=== PATIENT | female | born 1940 | race Caucasian/White ===

== ENCOUNTER 2019-01-22 16:37 | Observation (INO) ==
[2019-01-22] MEDS ORDERED: Isovue-370 500 ML BOTTLE IVP ONE (16:53)
[2019-01-22] MEDS ORDERED: Aspirin 325 MG TABLET PO ONE (16:54)
[2019-01-22 17:35] LABS: Basophils % 0.5 %; Eosinophils # 0.1 K/mcL (0.0-0.6); Eosinophils % 1.9 %; Hematocrit 36.6 % (35.3-44.9); Hemoglobin 12.3 g/dL (11.5-15.4); Immature Granulocytes % 0.5 % (0-4); Lymphocytes # 1.2 K/mcL (0.6-4.6); Lymphocytes % 21.4 %; Mean Corpuscular HGB Conc 33.6 g/dL (31.6-35.5); Mean Corpuscular Hemoglobin 32.8 pg (28.0-33.3); Mean Corpuscular Volume 97.6 fL (83.0-100.0); Mean Platelet Volume 10.5 fL (9.4-12.4); Monocytes # 0.7 K/mcL (0.0-1.3); Monocytes % 12.5 %; Neutrophils # 3.6 K/mcL (1.6-8.9); Platelet Count 149 K/mcL (140-400); Red Blood Count 3.75 M/mcL (3.82-4.97); Red Cell Distribution Width 12.4 % (11.5-14.5); Segmented Neutrophils % 63.2 %; White Blood Count 5.8 K/mcL (4.3-11.1)
[2019-01-22 17:54] LABS: Alanine Aminotransferase 10 Units/L (7-52); Albumin 4.2 g/dL (3.5-5.7); Albumin/Globulin Ratio 1.9 (1.1-2.2); Alkaline Phosphatase 88 Units/L (34-104); Aspartate Amino Transferase 15 Units/L (13-39); BUN/Creatinine Ratio 16 (6-26); Bilirubin,Total 0.4 mg/dL (0.3-1.0); Blood Urea Nitrogen 10 mg/dL (8-23); Calcium 9.1 mg/dL (8.6-10.3); Carbon Dioxide 30 mEq/L (23-29); Chloride 104 mEq/L (98-107); Globulin 2.2 g/dL (2.4-3.5); Glucose 118 mg/dL (70-105); Osmolality,Calculated 288 (280-300); Potassium 3.7 mEq/L (3.5-5.1); Sodium 139 mEq/L (136-145); Total Protein 6.4 g/dL (6.4-8.9); eGFR For African Americans > 60 (> 60); eGFR For Non-African Americans > 60 (> 60)
[2019-01-22 17:58] LABS: Bilirubin,Urine Negative (Negative); Blood,Urine Small (Negative); Clarity,Urine Clear (Clear); Color,Urine Yellow (Yellow); Glucose,Urine (UA) Normal (Normal); Ketones,Urine Negative (Negative); Leukocyte Esterase,Urine Small (Negative); Nitrite,Urine Negative (Negative); Protein,Urine Negative (Neg-Trace); Specific Gravity,Urine 1.012 (1.010-1.025); Urobilinogen,Urine Normal (Normal)
[2019-01-22 17:59] LABS: Bacteria,Urine None Seen per hpf (None-Few); Hyaline Casts,Urine None Seen per lpf (None-Few); Squamous Epithelial Cell,Urine Many per lpf (None-Few); WBC,Urine 0-3 per hpf (0-3)
[2019-01-22] MEDS ORDERED: 0.9 % Sodium Chloride 1,000 ML IVC ONE (18:26)
[2019-01-22] MEDS: Nitroglycerin 0.4 MG TAB.SUBL SL SCH ×2 (19:21→22:07)
[2019-01-22] MEDS ORDERED: Naloxone 0.4 MG/ML INJ IVP PRN (22:50)
[2019-01-22] MEDS ORDERED: Nitroglycerin 0.4 MG TAB.SUBL SL PRN (22:50)
[2019-01-22] MEDS ORDERED: Ondansetron 4 MG/2 ML VIAL IVP PRN (22:50)
[2019-01-23] MEDS: Morphine Sulfate 2 MG/ML SYRINGE IVP PRN ×2 (03:43→08:27)
[2019-01-23 05:25] LABS: Basophils % 0.6 %; Eosinophils # 0.1 K/mcL (0.0-0.6); Eosinophils % 2.9 %; Hematocrit 36.8 % (35.3-44.9); Immature Granulocytes % 0.2 % (0-4); Lymphocytes # 0.9 K/mcL (0.6-4.6); Lymphocytes % 17.7 %; Mean Corpuscular HGB Conc 32.6 g/dL (31.6-35.5); Mean Corpuscular Volume 98.1 fL (83.0-100.0); Mean Platelet Volume 10.5 fL (9.4-12.4); Monocytes # 0.6 K/mcL (0.0-1.3); Monocytes % 12.9 %; Neutrophils # 3.2 K/mcL (1.6-8.9); Platelet Count 147 K/mcL (140-400); Red Blood Count 3.75 M/mcL (3.82-4.97); Red Cell Distribution Width 12.6 % (11.5-14.5); Segmented Neutrophils % 65.7 %; White Blood Count 4.8 K/mcL (4.3-11.1)
[2019-01-23 05:32] LABS: INR 1.1; Prothrombin Time 12.5 Seconds (9.4-12.1)
[2019-01-23 05:35] LABS: Activated Partial Thrombo Time 33.5 Seconds (26.0-36.0)
[2019-01-23 05:46] LABS: Alanine Aminotransferase 9 Units/L (7-52); Albumin 3.8 g/dL (3.5-5.7); Albumin/Globulin Ratio 1.9 (1.1-2.2); Alkaline Phosphatase 80 Units/L (34-104); Aspartate Amino Transferase 13 Units/L (13-39); BUN/Creatinine Ratio 13 (6-26); Bilirubin,Total 0.5 mg/dL (0.3-1.0); Blood Urea Nitrogen 7 mg/dL (8-23); Calcium 8.7 mg/dL (8.6-10.3); Carbon Dioxide 29 mEq/L (23-29); Chloride 107 mEq/L (98-107); Chol/HDL Ratio 2.6 (0-4.9); Cholesterol 121 mg/dL (< 200); Glucose 115 mg/dL (70-105); HDL Cholesterol 47 mg/dL (40-59); LDL Cholesterol,Calculated 51 mg/dL (0-99); Osmolality,Calculated 291 (280-300); Potassium 3.8 mEq/L (3.5-5.1); Sodium 141 mEq/L (136-145); Total Protein 5.8 g/dL (6.4-8.9); Triglycerides 114 mg/dL (< 150); eGFR For African Americans > 60 (> 60); eGFR For Non-African Americans > 60 (> 60)
[2019-01-23] MEDS: *HR* Heparin 5,000 UNIT/ML VIAL SQ SCH ×2 (06:13→15:41)
[2019-01-23] MEDS: Cyanocobalamin (B-12) 1,000 MCG TABLET PO SCH (08:12)
[2019-01-23] MEDS: Aspirin Enteric Coated 81 MG Tablet PO SCH (08:58)
[2019-01-23] MEDS ORDERED: Aspirin 325 MG TABLET PO SCH (09:00)
[2019-01-23 11:44] LABS: Troponin I < 0.03 ng/mL (< 0.04)
[2019-01-23] MEDS: Acetaminophen 325 MG TABLET PO PRN (15:41)
[2019-01-23] MEDS ORDERED: Morphine Sulfate 2 MG/ML SYRINGE IVP PRN (16:01)
[2019-01-23 16:32] LABS: C-Reactive Protein 17 mg/L (Less than 10); Creatine Kinase 26 Units/L (30-223)
[2019-01-24 03:00] LABS: Basophils % 0.6 %; Eosinophils # 0.2 K/mcL (0.0-0.6); Eosinophils % 3.1 %; Hematocrit 35.7 % (35.3-44.9); Hemoglobin 11.9 g/dL (11.5-15.4); Immature Granulocytes % 0.4 % (0-4); Lymphocytes # 0.9 K/mcL (0.6-4.6); Lymphocytes % 18.9 %; Mean Corpuscular HGB Conc 33.3 g/dL (31.6-35.5); Mean Corpuscular Hemoglobin 32.2 pg (28.0-33.3); Mean Corpuscular Volume 96.7 fL (83.0-100.0); Mean Platelet Volume 10.3 fL (9.4-12.4); Monocytes # 0.7 K/mcL (0.0-1.3); Monocytes % 14.5 %; Neutrophils # 3.1 K/mcL (1.6-8.9); Platelet Count 145 K/mcL (140-400); Red Blood Count 3.69 M/mcL (3.82-4.97); Red Cell Distribution Width 12.4 % (11.5-14.5); Segmented Neutrophils % 62.5 %; White Blood Count 4.9 K/mcL (4.3-11.1)
[2019-01-24 03:13] LABS: Complement C3 145 mg/dL (87-200)
[2019-01-24 03:18] LABS: BUN/Creatinine Ratio 15 (6-26); Blood Urea Nitrogen 8 mg/dL (8-23); Calcium 8.9 mg/dL (8.6-10.3); Carbon Dioxide 28 mEq/L (23-29); Chloride 103 mEq/L (98-107); Glucose 114 mg/dL (70-105); Osmolality,Calculated 291 (280-300); Potassium 3.7 mEq/L (3.5-5.1); Sodium 141 mEq/L (136-145); eGFR For African Americans > 60 (> 60); eGFR For Non-African Americans > 60 (> 60)
[2019-01-24] MEDS: *HR* Heparin 5,000 UNIT/ML VIAL SQ SCH (06:18)
[2019-01-24] MEDS ORDERED: Regadenoson 0.4 MG/5 ML SYRINGE IVP ONE (07:22)
[2019-01-24] MEDS: Cyanocobalamin (B-12) 1,000 MCG TABLET PO SCH (09:27)
[2019-01-24] MEDS: Aspirin Enteric Coated 81 MG Tablet PO SCH (09:28)
[2019-01-24 10:47] VITALS: BP 135/75
[2019-01-24] MEDS: Acetaminophen 325 MG TABLET PO PRN (12:33)
[2019-01-26 14:12] LABS: ANA IgG by ELISA NONE DETECTED (None Detected); Serine Protease-3 Antibody 0 AU/mL (0-19)
== END 2019-01-24 14:53 | disposition home or self-care (01) ==
LOC: EMEROOARM 16:37 → 3BNU 16:37
PROVIDERS: ADMIT Family Medicine; ATTEND Family Medicine

== ENCOUNTER 2020-04-29 23:38 | Inpatient (IN) ==
[2020-04-29] MEDS ORDERED: Isovue-370 500 ML BOTTLE IVP ONE (23:48)
[2020-04-30 00:20] LABS: Basophils # 0.1 K/mcL (0.0-0.2); Basophils % 0.7 %; Eosinophils # 0.1 K/mcL (0.0-0.6); Eosinophils % 1.2 %; Hematocrit 28.8 % (35.3-44.9); Hemoglobin 9.4 g/dL (11.5-15.4); INR 1.1; Immature Granulocytes % 0.5 % (0-4); Lymphocytes # 2.2 K/mcL (0.6-4.6); Lymphocytes % 30.4 %; Mean Corpuscular HGB Conc 32.6 g/dL (31.6-35.5); Mean Corpuscular Hemoglobin 33.2 pg (28.0-33.3); Mean Corpuscular Volume 101.8 fL (83.0-100.0); Mean Platelet Volume 11.2 fL (9.4-12.4); Monocytes # 0.9 K/mcL (0.0-1.3); Monocytes % 11.7 %; Neutrophils # 4.1 K/mcL (1.6-8.9); Platelet Count 148 K/mcL (140-400); Red Blood Count 2.83 M/mcL (3.82-4.97); Red Cell Distribution Width 13.2 % (11.5-14.5); Segmented Neutrophils % 55.5 %; White Blood Count 7.4 K/mcL (4.3-11.1)
[2020-04-30 00:23] LABS: Activated Partial Thrombo Time 25.8 Seconds (26.0-36.0)
[2020-04-30 00:35] LABS: BUN/Creatinine Ratio 29 (6-26); Blood Urea Nitrogen 17 mg/dL (8-23); Calcium 7.9 mg/dL (8.6-10.3); Carbon Dioxide 24 mEq/L (23-29); Chloride 110 mEq/L (98-107); Glucose 118 mg/dL (70-105); Osmolality,Calculated 297 (280-300); Potassium 3.9 mEq/L (3.5-5.1); Sodium 142 mEq/L (136-145); Troponin I < 0.03 ng/mL (< 0.04); eGFR For African Americans > 60 (> 60); eGFR For Non-African Americans > 60 (> 60)
[2020-04-30 03:33] LABS: Adenovirus Not Detected (Not Detect); Bordetella Pertussis Not Detected (Not Detect); Chlamydophila pneumoniae Not Detected (Not Detect); Coronavirus 229E Not Detected (Not Detect); Coronavirus HKU1 Not Detected (Not Detect); Coronavirus NL63 Not Detected (Not Detect); Coronavirus OC43 Not Detected (Not Detect); Human Metapneumovirus Not Detected (Not Detect); Human Rhinovirus/Enterovirus Not Detected (Not Detect); Influenza A Subtype 2009 H1 Not Detected (Not Detect); Influenza B Not Detected (Not Detect); Mycoplasma pneumoniae Not Detected (Not Detect); Parainfluenza Virus 1 Not Detected (Not Detect); Parainfluenza Virus 2 Not Detected (Not Detect); Parainfluenza Virus 3 Not Detected (Not Detect); Parainfluenza Virus 4 Not Detected (Not Detect); Respiratory Syncytial Virus Not Detected (Not Detect); SARS-CoV-2 Not Detected (Not Detect)
[2020-04-30] MEDS ORDERED: Naloxone 0.4 MG/ML INJ IVP PRN (10:17)
[2020-04-30 13:32] LABS: Hematocrit 28.2 % (35.3-44.9); Hemoglobin 9.4 g/dL (11.5-15.4)
[2020-04-30] MEDS ORDERED: Acetaminophen 325 MG TABLET PO ONE (15:49)
[2020-04-30] MEDS: Pantoprazole 40 MG VIAL IVP SCH (16:15)
[2020-04-30] MEDS ORDERED: Ondansetron 4 MG/2 ML VIAL IVP ONE (17:53)
[2020-04-30 19:06] LABS: Hematocrit 27.6 % (35.3-44.9)
[2020-04-30 20:50] LABS: Hemoglobin 9.3 g/dL (11.5-15.4)
[2020-05-01 05:53] LABS: Monocytes # 0.6 K/mcL (0.0-1.3); Monocytes % 11.3 %; White Blood Count 5.2 K/mcL (4.3-11.1)
[2020-05-01 05:55] LABS: Basophils % 0.8 %; Eosinophils # 0.1 K/mcL (0.0-0.6); Eosinophils % 2.3 %; Hematocrit 27.1 % (35.3-44.9); Hemoglobin 8.8 g/dL (11.5-15.4); Immature Granulocytes % 0.8 % (0-4); Immature Platelets 10.6 % (1.1-6.1); Lymphocytes # 1.2 K/mcL (0.6-4.6); Lymphocytes % 23.8 %; Mean Corpuscular HGB Conc 32.5 g/dL (31.6-35.5); Mean Corpuscular Hemoglobin 33.5 pg (28.0-33.3); Mean Platelet Volume 11.1 fL (9.4-12.4); Neutrophils # 3.2 K/mcL (1.6-8.9); Nucleated Red Blood Cells 0.4 /100 WBC (0); Platelet Count 139 K/mcL (140-400); Red Blood Count 2.63 M/mcL (3.82-4.97); Red Cell Distribution Width 13.3 % (11.5-14.5)
[2020-05-01] MEDS: Pantoprazole 40 MG VIAL IVP SCH (06:05)
[2020-05-01 06:13] LABS: BUN/Creatinine Ratio 16 (6-26); Blood Urea Nitrogen 10 mg/dL (8-23); Calcium 8.5 mg/dL (8.6-10.3); Carbon Dioxide 27 mEq/L (23-29); Chloride 106 mEq/L (98-107); Glucose 154 mg/dL (70-105); Osmolality,Calculated 292 (280-300); Potassium 3.3 mEq/L (3.5-5.1); Sodium 140 mEq/L (136-145); eGFR For African Americans > 60 (> 60); eGFR For Non-African Americans > 60 (> 60)
[2020-05-01] MEDS ORDERED: Potassium Chloride 20 MEQ, Lidocaine 1% 2 ML in 0.9 % Sodium Chloride 250 ML IVPB ONE (07:29)
[2020-05-01 09:19] LABS: % Iron Saturation 28 % (15-50); Iron 67 mcg/dL (50-170); Transferrin 174 mg/dL (203-362)
[2020-05-01 09:31] LABS: Ferritin 72 ng/mL (10-120)
[2020-05-01 09:37] LABS: Folate 21.5 ng/mL (3.0-16.0)
[2020-05-01] MEDS ORDERED: Lidocaine -MPF 2% 5 ML VIAL SQ ONE (11:07)
[2020-05-01] MEDS ORDERED: *HR* Propofol 200 MG/20 ML VIAL IVP ONE (11:07)
[2020-05-01] MEDS ORDERED: *HR* EPINEPHrine 1 MG/10 ML SYRINGE IVP PRN (13:01)
[2020-05-01] MEDS ORDERED: Fluconazole 100 MG TABLET PO SCH (14:00)
[2020-05-01] MEDS ORDERED: Aspirin 81 MG TAB.CHEW PO SCH (20:00)
[2020-05-02 07:00] VITALS: BP 122/66
[2020-05-02 08:11] LABS: Hemoglobin 8.5 g/dL (11.5-15.4); Mean Corpuscular Volume 102.4 fL (83.0-100.0)
[2020-05-02 08:13] LABS: Hematocrit 26.1 % (35.3-44.9); Immature Platelets 9.9 % (1.1-6.1); Mean Corpuscular HGB Conc 32.6 g/dL (31.6-35.5); Mean Corpuscular Hemoglobin 33.3 pg (28.0-33.3); Mean Platelet Volume 10.9 fL (9.4-12.4); Red Blood Count 2.55 M/mcL (3.82-4.97); Red Cell Distribution Width 13.3 % (11.5-14.5); White Blood Count 7.6 K/mcL (4.3-11.1)
[2020-05-02 09:02] LABS: BUN/Creatinine Ratio 12 (6-26); Blood Urea Nitrogen 7 mg/dL (8-23); Calcium 8.5 mg/dL (8.6-10.3); Carbon Dioxide 27 mEq/L (23-29); Chloride 106 mEq/L (98-107); Glucose 120 mg/dL (70-105); Osmolality,Calculated 285 (280-300); Potassium 3.6 mEq/L (3.5-5.1); Sodium 138 mEq/L (136-145); eGFR For African Americans > 60 (> 60); eGFR For Non-African Americans > 60 (> 60)
[2020-05-02] MEDS ORDERED: FLU Vac QV 20-21 (6Month+)/PF 0.5 ML SYRINGE IM ONE (09:16)
== END 2020-05-02 11:08 | disposition home or self-care (01) | DRG 378 ==
LOC: 3BNU 23:38 → EMEROOARM 23:38 → SUATTDRO 04-30 04:12 → 3BNU 04-30 05:10 → 3ANU 04-30 17:29
PROVIDERS: ADMIT Student in an Organized Health Care Education/Training Program; ATTEND Family Medicine
PROC: ENDOCCB (2020-05-01 09:10)

== ENCOUNTER 2021-01-19 04:42 | Observation (INO) ==
[2021-01-19] MEDS ORDERED: 0.9 % Sodium Chloride 1,000 ML IVC ONE (04:51)
[2021-01-19 05:24] LABS: VBG HCO3 22 mEq/L (21-27); VBG PCO2 33 mmHg (41-51); VBG PH 7.43 pH Units (7.32-7.42); VBG PO2 52 mmHg (25-50)
[2021-01-19 05:26] LABS: Basophils % 0.7 %; Eosinophils % 0.5 %; Hematocrit 31.3 % (35.3-44.9); Hemoglobin 10.6 g/dL (11.5-15.4); Immature Granulocytes % 0.7 % (0-4); Lymphocytes # 0.5 K/mcL (0.6-4.6); Lymphocytes % 12.5 %; Mean Corpuscular HGB Conc 33.9 g/dL (31.6-35.5); Mean Corpuscular Volume 100.3 fL (83.0-100.0); Mean Platelet Volume 11.2 fL (9.4-12.4); Monocytes # 0.7 K/mcL (0.0-1.3); Monocytes % 16.2 %; Platelet Count 130 K/mcL (140-400); Red Blood Count 3.12 M/mcL (3.82-4.97); Red Cell Distribution Width 12.7 % (11.5-14.5); Segmented Neutrophils % 69.4 %; White Blood Count 4.3 K/mcL (4.3-11.1)
[2021-01-19 05:40] LABS: INR 1.3; Prothrombin Time 15.4 Seconds (9.4-12.1)
[2021-01-19 05:42] LABS: Activated Partial Thrombo Time 29.8 Seconds (26.0-36.0)
[2021-01-19 05:46] LABS: Bacteria,Urine Few per hpf (None-Few); Bilirubin,Urine Negative (Negative); Blood,Urine Large (Negative); Clarity,Urine Clear (Clear); Color,Urine Yellow (Yellow); Glucose,Urine (UA) Normal (Normal); Ketones,Urine 60 mg/dL (Negative); Leukocyte Esterase,Urine Small (Negative); Mucus,Urine Few per lpf (None-Few); Nitrite,Urine Negative (Negative); PH,Urine 6.5 pH Units (5.0-8.0); Protein,Urine 100 mg/dL (Neg-Trace); RBC,Urine 50-100 per hpf (0-3); Specific Gravity,Urine 1.019 (1.010-1.025); Squamous Epithelial Cell,Urine Few per hpf (None-Few); Urobilinogen,Urine Normal (Normal)
[2021-01-19 05:48] LABS: Alanine Aminotransferase 16 Units/L (7-52); Albumin 3.8 g/dL (3.5-5.7); Albumin/Globulin Ratio 1.4 (1.1-2.2); Alkaline Phosphatase 101 Units/L (34-104); Aspartate Amino Transferase 23 Units/L (13-39); BUN/Creatinine Ratio 11 (6-26); Bilirubin,Direct 0.2 mg/dL (0.0-0.2); Bilirubin,Indirect 0.5 mg/dL (0.0-1.0); Bilirubin,Total 0.7 mg/dL (0.3-1.0); Blood Urea Nitrogen 6 mg/dL (8-23); Calcium 8.7 mg/dL (8.6-10.3); Carbon Dioxide 22 mEq/L (23-29); Chloride 101 mEq/L (98-107); Globulin 2.8 g/dL (2.4-3.5); Glucose 120 mg/dL (70-105); Magnesium 1.7 mg/dL (1.6-2.6); Osmolality,Calculated 277 (280-300); Phosphorous 2.1 mg/dL (2.7-4.5); Potassium 3.1 mEq/L (3.5-5.1); Sodium 134 mEq/L (136-145); Total Protein 6.6 g/dL (6.4-8.9); Troponin I < 0.03 ng/mL (< 0.04); eGFR For African Americans > 60 (> 60); eGFR For Non-African Americans > 60 (> 60)
[2021-01-19] MEDS ORDERED: cefTRIAXone 1,000 MG in Water for inj. (sterile) 10 ML IVP ONE (05:51)
[2021-01-19] MEDS ORDERED: Azithromycin 500 MG in D5% in Water 250 ML IVPB ONE (05:51)
[2021-01-19] MEDS ORDERED: Potassium Chloride 40 MEQ, Lidocaine 1% 2 ML in 0.9 % Sodium Chloride 500 ML IVPB ONE (06:30)
[2021-01-19 07:12] LABS: Adenovirus Not Detected (Not Detect); Bordetella Pertussis Not Detected (Not Detect); Chlamydophila pneumoniae Not Detected (Not Detect); Coronavirus 229E Not Detected (Not Detect); Coronavirus HKU1 Not Detected (Not Detect); Coronavirus NL63 Not Detected (Not Detect); Coronavirus OC43 Not Detected (Not Detect); Human Metapneumovirus Not Detected (Not Detect); Human Rhinovirus/Enterovirus Not Detected (Not Detect); Influenza A Subtype 2009 H1 Not Detected (Not Detect); Influenza B Not Detected (Not Detect); Mycoplasma pneumoniae Not Detected (Not Detect); Parainfluenza Virus 1 Not Detected (Not Detect); Parainfluenza Virus 2 Not Detected (Not Detect); Parainfluenza Virus 3 Not Detected (Not Detect); Parainfluenza Virus 4 Not Detected (Not Detect); Respiratory Syncytial Virus Not Detected (Not Detect); SARS-CoV-2 Not Detected (Not Detect)
[2021-01-19] MEDS ORDERED: *HR* HYDROcodone/Acet 5/325 mg TABLET PO PRN (07:24)
[2021-01-19] MEDS ORDERED: Ondansetron 4 MG/2 ML VIAL IVP PRN (07:24)
[2021-01-19] MEDS ORDERED: Naloxone 0.4 MG/ML INJ IVP PRN (07:24)
[2021-01-19] MEDS ORDERED: Ipratropium/Albuterol Neb 3 ML IH PRN (07:27)
[2021-01-19] MEDS: Ringers Solution, Lactated 1,000 ML IVC SCH (10:11)
[2021-01-19] MEDS: levoFLOXacin 750 MG/150 ML 750 MG/150 ML BAG IVPB SCH (10:12)
[2021-01-19] MEDS: Acetaminophen 325 MG TABLET PO PRN ×2 (12:03→21:23)
[2021-01-19] MEDS: *HR* Heparin 5,000 UNIT/ML VIAL SQ SCH (18:00)
[2021-01-20] MEDS: Ringers Solution, Lactated 1,000 ML IVC SCH (03:27)
[2021-01-20 03:28] LABS: Basophils % 0.6 %; Red Blood Count 2.89 M/mcL (3.82-4.97)
[2021-01-20 03:30] LABS: Eosinophils % 0.9 %; Hematocrit 28.9 % (35.3-44.9); Immature Granulocytes % 0.6 % (0-4); Immature Platelets 8.2 % (1.1-6.1); Lymphocytes # 0.6 K/mcL (0.6-4.6); Lymphocytes % 17.5 %; Mean Corpuscular HGB Conc 34.6 g/dL (31.6-35.5); Mean Corpuscular Hemoglobin 34.6 pg (28.0-33.3); Monocytes # 0.6 K/mcL (0.0-1.3); Monocytes % 18.2 %; Platelet Count 137 K/mcL (140-400); Red Cell Distribution Width 12.7 % (11.5-14.5); Segmented Neutrophils % 62.2 %; White Blood Count 3.3 K/mcL (4.3-11.1)
[2021-01-20 03:34] LABS: Neutrophils # 2.1 K/mcL (1.6-8.9)
[2021-01-20 03:50] LABS: BUN/Creatinine Ratio 12 (6-26); Blood Urea Nitrogen 6 mg/dL (8-23); Calcium 8.5 mg/dL (8.6-10.3); Carbon Dioxide 26 mEq/L (23-29); Chloride 107 mEq/L (98-107); Glucose 109 mg/dL (70-105); Magnesium 1.8 mg/dL (1.6-2.6); Osmolality,Calculated 286 (280-300); Phosphorous 2.5 mg/dL (2.7-4.5); Potassium 3.7 mEq/L (3.5-5.1); Sodium 139 mEq/L (136-145); eGFR For African Americans > 60 (> 60); eGFR For Non-African Americans > 60 (> 60)
[2021-01-20] MEDS: *HR* Heparin 5,000 UNIT/ML VIAL SQ SCH (05:54)
[2021-01-20 07:13] VITALS: BP 137/69
[2021-01-20] MEDS: levoFLOXacin 750 MG/150 ML 750 MG/150 ML BAG IVPB SCH (08:04)
[2021-01-20] MEDS ORDERED: Aspirin 81 MG TAB.CHEW PO SCH (09:00)
== END 2021-01-20 09:53 | disposition home or self-care (01) ==
LOC: EMEROOARM 04:42 → 3ANU 04:42 → SUATTDRO 08:11 → 3ANU 09:26
PROVIDERS: ADMIT Internal Medicine; ATTEND Internal Medicine